=== PATIENT | female | born 1990 | race Asian ===

== ENCOUNTER → 2019-03-07 | Outpatient (CLI) | payer OTHER ==
[2019-03-07 09:40] LABS: ALBUMIN 3.8 GM/DL (3.2-5.2); ALT/SGPT 16 U/L (12-78); BILIRUBIN,TOTAL 0.4 MG/DL (0.2-1.0); BLOOD UREA NITROGEN 15 MG/DL (7-18); CALCIUM LEVEL 9.1 MG/DL (8.5-10.1); CARBON DIOXIDE LEVEL 28 MEQ/L (21-32); CHLORIDE LEVEL 106 MEQ/L (98-107); CHOLESTEROL LEVEL 195 MG/DL (<200); CHOLESTEROL RISK RATIO 2.954 (<5); CREATININE FOR GFR 0.59 MG/DL (0.55-1.30); FREE T4 1.12 NG/DL (0.76-1.46); GLOMERULAR FILTRATION RATE > 60.0 (>60); GLUCOSE, FASTING 77 MG/DL (70-100); HDL CHOLESTEROL 66 MG/DL (>40); LDL CHOLESTEROL 101 MG/DL (<100); NON-HDL-C 129 MG/DL; POTASSIUM SERUM 3.8 MEQ/L (3.5-5.1); SODIUM LEVEL 141 MEQ/L (136-145); TOTAL PROTEIN 7.6 GM/DL (6.4-8.2); TRIGLYCERIDES LEVEL 142 MG/DL (<150)
[2019-03-07 12:12] LABS: TOTAL 25(OH) VITAMIN D 27.7 NG/ML (30.0-100.0)
== END ==
LOC: M LAB 08:03
PROVIDERS: ATTEND Nurse Practitioner Family
DX: Z00.00 Encounter for general adult medical examination without abnormal findings (principal)

== ENCOUNTER → 2019-06-28 | Outpatient (REF) | payer OTHER ==
[2019-06-28 15:00] LABS: CHLAMYDIA DNA AMPLIFICATION NEGATIVE (NEGATIVE); GC DNA AMPLIFICATION NEGATIVE (NEGATIVE)
== END ==
LOC: M SFHCWAGY 12:52
PROVIDERS: ATTEND Nurse Practitioner Family
DX: Z12.4 Encounter for screening for malignant neoplasm of cervix (principal); Z11.3 Encounter for screening for infections with a predominantly sexual mode of transmission; R87.610 Atypical squamous cells of undetermined significance on cytologic smear of cervix (ASC-US)
CPT/HCPCS: 87491; 87591; 87624; G0123

== ENCOUNTER → 2019-11-20 | Outpatient (REF) | payer OTHER ==
[2019-11-20 13:56] LABS: HEMATOCRIT 38.6 % (36.0-47.0); HEMOGLOBIN 12.7 g/dl (12.0-15.5); MEAN CORPUSCULAR HEMOGLOBIN 30.1 pg (27.0-33.0); MEAN CORPUSCULAR HGB CONC 32.9 g/dl (32.0-36.5); MEAN CORPUSCULAR VOLUME 91.5 fl (80.0-96.0); PLATELET COUNT, AUTOMATED 187 10^3/uL (150-450); RED BLOOD COUNT 4.22 10^6/uL (4.00-5.40); WHITE BLOOD COUNT 7.1 10^3/uL (4.0-10.0)
[2019-11-20 14:33] LABS: HEPATITIS C VIRUS ABY INDEX 0.3 INDEX (<0.8); HIV 1&2 SCREEN CENTAUR NEGATIVE (NEGATIVE)
[2019-11-20 14:56] LABS: CHLAMYDIA DNA AMPLIFICATION NEGATIVE (NEGATIVE); GC DNA AMPLIFICATION NEGATIVE (NEGATIVE)
== END ==
LOC: M PLALAB 11:03
PROVIDERS: ATTEND Obstetrics & Gynecology
DX: Z34.91 Encounter for supervision of normal pregnancy, unspecified, first trimester (principal)

== ENCOUNTER → 2020-02-09 | Outpatient (CLI) | payer OTHER ==
--- NOTE | 2020-03-05 14:30 | REP ---
COMPLETE OBSTECTRIC ULTRASOUND: 02/09/20 CLINICAL: Anatomical assessment TECHNIQUE: Transabdominal obstetric ultrasound with color Doppler evaluation. FINDINGS: Ultrasound examination demonstrates single live intrauterine in breech presentation. motion was identified by technologist. Placenta is noted anteriorly and grade 1 without placenta previa or abruption. Amniotic fluid volume is subjectively normal. Cervix measures 3cm in length and appears closed. HEART RATE: 144bpm BPD: 47mm; 20 weeks 3 days HC: 176mm; 20 weeks 1 day AC: 153mm; 20 weeks 4 days FL: 32mm; 20 weeks 0 days HL: 32mm; 20 weeks 6 days Estimated age by current measurements 20 weeks 2 days Estimated weight 342g (52nd percentile) Anatomical assessment demonstrates normal cisterna magna, cavum, thalamus, stomach, kidneys/bladder, four chamber heart/ventricular outflow tract, three vessel cord/cord insertion, facial features and extremities. Limited evaluation of the spine noted. IMPRESSION: 1. Single intrauterine in breech presentation demonstrating appropriate estimated weight and growth. 2. Limited evaluation of the spine. Remainder of the anatomical assessment is complete and normal. MTDD
== END ==
LOC: M WHC 12:46
PROVIDERS: ATTEND Advanced Practice Midwife
DX: Z34.82 Encounter for supervision of other normal pregnancy, second trimester (principal)

== ENCOUNTER → 2020-02-26 | Outpatient (CLI) | payer OTHER ==
--- NOTE | 2020-03-08 08:48 | REP ---
FOLLOW-UP OBSTETRICAL ULTRASOUND COMPARISON: 02/09/2020 TECHNIQUE: Transabdominal obstetrical ultrasound with color Doppler evaluation. FINDINGS: Ultrasound examination demonstrates a single live intrauterine in breech presentation. Placenta noted anteriorly and grade 0 without placenta previa or abruption. Amniotic fluid volume is normal. Cervix measures 4.1 cm in length and appears closed. Gestational age by last menstrual period (LMP) 22 weeks 4 days with estimated date of delivery 06/27/2020. Gestational age by current measurements 22 weeks 3 days with estimated date of delivery 06/28/2020. heart rate 155 beats per minute. Estimated weight 507 grams (43rd percentile). Anatomical examination again demonstrates limited evaluation of the sacral spine due to presentation, although evaluation of the cervical, thoracic, and lumbar spine appear normal. IMPRESSION: * Single live intrauterine in breech presentation demonstrating appropriate interval growth. * Limited evaluation of the sacral spine. Remainder of the anatomical assessment in conjunction with prior examination appears normal. MTDD
== END ==
LOC: M WHC 13:22
PROVIDERS: ATTEND Advanced Practice Midwife
DX: O32.1XX0 Maternal care for breech presentation, not applicable or unspecified (principal); Z3A.22 22 weeks gestation of pregnancy

== ENCOUNTER → 2020-03-13 | Outpatient (CLI) | payer OTHER ==
--- NOTE | 2020-03-18 10:17 | REP ---
OBSTETRIC SONOGRAPHY HISTORY: Supervision of , follow-up anatomy. Sacral spine. FINDINGS: Scanning through the gravid uterus demonstrates a viable single intrauterine gestation in a transverse head to the maternal left lie. Placenta is anterior grade 0 without evidence of previa. Three-vessel cord is seen. heart rate is recorded at 158 beats per minute. Amniotic fluid is subjectively normal. Closed cervical length is measured 3.3 cm viewed transabdominally. The spine including the sacral spine is visualized and felt to be unremarkable today. BIOMETRY CHART: BPD 6.4 cm 25 weeks 5 days Head circumference 22.9 cm 25 weeks 0 days Abdominal circumference 20.2 cm 24 weeks 6 days Femur length 4.5 cm 24 weeks 6 days Humeral length 4.1 cm 24 weeks 5 days AC/HC ratio 1.13 Normal Cephalic index 0.78 Normal Estimated weight 744 grams, 1 pound 10 ounces, 39th percentile for 24 weeks 6 days. IMPRESSION: Viable single intrauterine gestation at 25 weeks 0 days by today composite criteria. Estimated date of delivery (TWIN) by todays sonography 06/26/2020. Sacral spine is visualized today and is felt to be unremarkable. MTDD
== END ==
LOC: M WHC 09:54
PROVIDERS: ATTEND Advanced Practice Midwife
DX: Z34.82 Encounter for supervision of other normal pregnancy, second trimester (principal)